=== PATIENT | female | born 1975 | race Two or more races ===

== ENCOUNTER 2021-08-22 13:30 | Inpatient (IN) | payer OTHER ==
[~2021-08-22] VITALS: Ht 167.6 cm; Wt 128.4 kg
[2021-08-22] MEDS ORDERED: TRAZODONE HCL150 MG PO (14:58)
[2021-08-22] MEDS ORDERED: COZAAR100 MG PO (14:58)
[2021-08-23] MEDS ORDERED: NORETHINDRONE AC5 MG (15:57)
[2021-08-23] MEDS ORDERED: MEGESTROL ACETA40 MG (15:57)
[2021-08-23] MEDS ORDERED: MEDROXYPRO150 MG/11 (15:57)
== END 2021-08-26 11:58 | disposition home or self-care (01) | DRG 735 ==
LOC: OB/GYN 08-23 07:16 → O/R 08-23 07:16 → OB/GYN 08-23 10:45
PROVIDERS: ADMIT Specialist; ATTEND Specialist
PROC: 0UT90ZZ Resection of Uterus, Open Approach (ICD-10-PCS; 2021-08-23)
PROC: 0UT70ZZ Resection of Bilateral Fallopian Tubes, Open Approach (ICD-10-PCS; 2021-08-23)
PROC: 0UT20ZZ Resection of Bilateral Ovaries, Open Approach (ICD-10-PCS; 2021-08-23)
PROC: 3E1M38Z Irrigation of Peritoneal Cavity using Irrigating Substance, Percutaneous Approach (ICD-10-PCS; 2021-08-23)
PROC: 07TC0ZZ Resection of Pelvis Lymphatic, Open Approach (ICD-10-PCS; principal; 2021-08-23 10:45)
DX: C54.1 Malignant neoplasm of endometrium (principal); Z20.822 Contact with and (suspected) exposure to COVID-19; N80.2 Endometriosis of fallopian tube; N72 Inflammatory disease of cervix uteri